=== PATIENT | male | born 1940 | race Two or more races ===

== ENCOUNTER 2020-03-06 13:23 | Inpatient (IN) | payer MEDICARE ==
[2020-03-06] VITALS (7 sets, daily range): BP systolic 187–205; BP diastolic 79–91; BMI 23.4
[~2020-03-06] VITALS: Ht 162.6 cm; Wt 61.5 kg
--- NOTE | ~2020-03-06 | EC ---
PATIENT:ANN MARIE DUTTON JR DATE OF SERVICE: 03/06/20 SEX: M MEDICAL RECORD: [id number] DATE OF : 44 LOCATION:D.M2 D.212 AGE OF PATIENT: 79 ADMISSION DATE: 03/06/20 REFERRING PHYSICIAN: INTERPRETING PHYSICIAN: JACKELNY GUTIÉRREZ MD ECHOCARDIOGRAM REPORT ECHO CHARGES 4 ECHO COMPLETE Date: 03/07/20 CLINICAL DIAGNOSIS: LVH ECHOCARDIOGRAPHIC MEASUREMENTS (adult normal given) AC root (d.<3.7cm) 3.6 cm LV Septum d (<1.2 cm> 1.3 cm Valve Excursion 1.2 cm LV Septum (systole) 1.7 cm Left Atria (s.<4.0cm> 3.2 cm LVPW d(<1.2cm) 1.3 cm RV (d.<2.3cm) 2.3 cm LVPW (sytole) 1.9 cm LV diastole(<5.6CM) 4.9 cm MV E-F(>70mm/sec) cm LV systole 2.7 cm LVOT Diameter 1.8 cm MV exc.(>10mm) cm Est.ejection fraction (50-75%) % DOPPLER: LVIT cm/sec A 63.0 cm/sec E 111.0 cm/sec LA cm/sec RVSP 23.0 mmHg LVOT 89.0 cm/sec AOP1/2T m/s Asc. Ao 125 cm/sec RVOT 106 cm/sec RA cm/sec PA 146 cm/sec AV Gradient Peak 6.2 mmHg AV Mean 3.4 mmHg AV Area 2.0 cm MV Gradient Peak 6.5 mmHg MV Mean 2.6 mmHg MV Area cm COMMENTS: Certified Medical Assistant: Chanell LAUOE Chief Nursing Executive: Rena Gutiérrez TAPE# PACS Pericardial Effusion N DATE OF SERVICE: 03/08/2020 PROCEDURE: Transthoracic echocardiogram. Left ventricle is normal size, normal function, ejection fraction 50% to 55% with concentric left ventricular hypertrophy. Left atrium is normal size and function. Aortic valve is normal. ECHOCARDIOGRAM REPORT [id number] ANN MARIE DUTTON JR Mitral valve has trace mitral regurgitation. Tricuspid valve is normal structure and function. Right ventricular systolic pressure is 23 mmHg. Pericardium is normal. Right ventricle is normal size, shape, and function. Right atrium is normal size, shape, and function. Pulmonic valve is normal. TRANSINT:[id number] Voice Confirmation ID: [id number] DOCUMENT ID: [id number] JACKELYN GUTIÉRREZ MD CC: [id number] DICTATION DATE: 03/08/201839 TABLE TENDER: 03/09/20 0202 ADM IN [facility] [address] [id number]
--- NOTE | 2020-03-06 13:28 | NUR ---
PT GIVES VERBAL CONSENT TO SPEAK TO DAUGHTER THERESA OVER THE PHONE ABOUT HIS MEDICAL CONDITION. PHONE NUMBER [phone].
[2020-03-06 14:59] LABS: BASOPHILS 0 % (0-2); EOSINOPHILS 0 % (0-7); HEMATOCRIT 48.3 % (42.0-54.0); HEMOGLOBIN 15.6 g/dL (13.5-17.5); IMMATURE GRANULOCYTES 0.1 % (0-5); LYMPHOCYTES 5.8 % (15-50); MCH 28.6 pg (26.0-34.0); MCHC 32.3 g/dL (31.0-37.0); MCV 88.5 fL (80.0-100.0); MEAN PLATELET VOLUME 9.7 fL (7.4-10.4); MONOCYTES 0.3 % (2-11); NEUTROPHILS 93.8 % (40-80); PLATELET COUNT 205 10x3/uL (130-400); RBC 5.46 10x6/uL (4.20-6.10); RDW 13.8 % (11.5-14.5); WBC 8.9 10x3/uL (4.8-10.8)
[2020-03-06 15:18] LABS: CALC OSMOLALITY 285 mosm/kg (275-300); CALCIUM 9.2 mg/dL (8.5-10.1); CARBON DIOXIDE 26.1 mmol/L (21.0-32.0); CHLORIDE - SERUM 105 mmol/L (98-107); CREATININE - SERUM 1.6 mg/dL (0.6-1.3); GLUCOSE 157 mg/dL (74-106); POTASSIUM - SERUM 4.6 mmol/L (3.5-5.1); SODIUM 141 mmol/L (136-145); UREA NITROGEN 19 mg/dL (7-18); eGFR NON AFRICAN AMERICAN 45 mL/min (90-120)
[2020-03-06 15:40] LABS: ALBUMIN 3.6 g/dL (3.4-5.0); ALKALINE PHOSPHATASE 166 U/L (30-120); ALT (SGPT) 18 U/L (10-68); BILIRUBIN - TOTAL 0.31 mg/dL (0.2-1.3); CKMB 9.1 U/L (0.0-3.6); CREATINE KINASE 100 UL (21-232); INR 1.01 (0.85-1.17); PROTEIN - SERUM 7.4 g/dL (6.4-8.2); PROTIME 13.3 SECONDS (11.6-15.0)
[2020-03-06 16:04] LABS: TROPONIN-I 1.802 ng/mL (0.000-0.060)
--- NOTE | 2020-03-06 17:00 | NUR ---
REPORT OF CONDITION GIVEN TO THERESA PAREDES R/T ADMISSION AND ROOM NUMBER.
--- NOTE | 2020-03-06 17:15 | NUR ---
REPORT OF ADMISSION AND ROOM NUMBER GIVEN TO CAREGIVER TROY TATE, GRANDDAUGHTER.
--- NOTE | 2020-03-06 17:34 | NUR ---
LOVENOX GIVEN AT [facility] ER. DOSE HELD AT 1734 PER ERP ORDERS.
--- NOTE | 2020-03-06 17:58 | NUR ---
PT TO ROOM FROM ER ON CART. ASSIST TO BED. OXYGEN IN USE. DR GUTIÉRREZ NOTIFIED OF CONSULT. TELEMETRY APPLIED.
--- NOTE | 2020-03-06 18:35 | NUR ---
[facility] WITH LIST OF PT'S MEDS FAMILY SENT. CALLED WITH FAX NUMBER TO SEND TO FLOOR. WILL UPDATE MED LIST AT THAT TIME.
--- NOTE | 2020-03-06 20:00 | NUR ---
INITIAL ROUNDS AND ASSESSMENT COMPLETED. PT RESTING IN BED. GARBLED SPEECH. ASKING FOR FOOD TO EAT. PROVIDED WITH SANDWICH TRAY/DRINK. PT'S GRAND DAUGHTER ARRIVED AND SPENT TIME WITH HIM. CPOC.
[2020-03-07 00:30] VITALS: BP 140/63
[2020-03-07 04:30] VITALS: BP 157/56
[2020-03-07 05:01] LABS: BASOPHILS 0 % (0-2); EOSINOPHILS 0 % (0-7); HEMATOCRIT 42.3 % (42.0-54.0); HEMOGLOBIN 13.6 g/dL (13.5-17.5); IMMATURE GRANULOCYTES 0.3 % (0-5); LYMPHOCYTES 5.3 % (15-50); MCH 28.3 pg (26.0-34.0); MCHC 32.2 g/dL (31.0-37.0); MCV 87.9 fL (80.0-100.0); MONOCYTES 2.2 % (2-11); NEUTROPHILS 92.2 % (40-80); PLATELET COUNT 193 10x3/uL (130-400); RBC 4.81 10x6/uL (4.20-6.10); RDW 13.7 % (11.5-14.5)
[2020-03-07 05:02] LABS: WBC 17.1 10x3/uL (4.8-10.8)
[2020-03-07 05:08] LABS: INR 1.18 (0.85-1.17); PROTIME 14.9 SECONDS (11.6-15.0)
[2020-03-07 05:51] LABS: ANION GAP 14.7 mmol/L (8-16); CALCIUM 8.8 mg/dL (8.5-10.1); CARBON DIOXIDE 22.8 mmol/L (21.0-32.0); CREATININE - SERUM 1.8 mg/dL (0.6-1.3); POTASSIUM - SERUM 4.5 mmol/L (3.5-5.1)
[2020-03-07 05:53] LABS: TROPONIN-I 1.075 ng/mL (0.000-0.060)
[2020-03-07] MEDS ORDERED: BAYER CHEWABLE81 MG PO (07:26)
[2020-03-07] MEDS ORDERED: COREG 3.1253.125 MG PO (07:27)
[2020-03-07] MEDS ORDERED: PLAVIX75 MG PO (07:27)
[2020-03-07] MEDS ORDERED: KLOR-CON M2020 MEQ PO (07:28)
[2020-03-07] MEDS ORDERED: LISINOPRIL-HCT1 EAC7 PO (07:28)
[2020-03-07] MEDS ORDERED: NITROSTAT0.4 MG SL (07:29)
[2020-03-07] MEDS ORDERED: LOVASTATIN10 MG PO (07:29)
[2020-03-07] MEDS ORDERED: TAPAZOLE 5 MG TA5 MG PO (07:32)
--- NOTE | 2020-03-07 07:35 | NUR ---
PT AWAKE AND ORIENTED, LYING IN BED RECIEVING BREATHING TX. NO COMPLAINTS OR CONCERNS STATED AT HIS ITME. NO FAMILY AT BEDSIDE. ALL QUESTIONS ANSWERED TO THE BEST OF MY ABILITY. CL IN REACH, SRX2.
[2020-03-07 09:50] VITALS: BMI 23.3
[2020-03-07 10:14] VITALS: BP 160/72
[2020-03-07 12:32] VITALS: Ht 162.6 cm; Wt 61.5 kg
--- NOTE | 2020-03-07 13:43 | NUR ---
I have reviewed this patient and I concur with the Shift Assessment completed by the Licensed Practical Nurse today this shift.
--- NOTE | 2020-03-07 17:59 | NUR ---
PT DAUGHTER HAS BEEN IN AND OUT OF ROOM MULTIPLE TIMES TODAY, SWAPPING ON AND OFF WITH THE SON (THEY HAVE SPECIAL PERMISSION PER ADMINISTRATION AND CONFIRMED BY FISHING LINE WINDING MACHINE OPERATOR SHELBIE). DAUGHTER C/O OF OUR COFFEE NOT BEING FRESH DESPITE THE FACT [employer] HAD JUST MADE A POT. SHE COMPLAINED ABOUT THAT THREE TIMES AND ONCE TO THE DR. UNSURE HOW TO BETTER MEET THIS NEED COFFEE WAS A FRESHLY MADE FULL POT. PT HAS BEEN ALERT AND ORIENTED, UP WITHOUT ASSIST. TOOK ALL MEDIACTIONS WITHOUT DIFFICULTY. ALL QUESTIONS ANSWERED TO THE BEST OF MY ABILITY, PT WAS SEEN BY HOSPITALIST AND ALL CONSULTING DRS. NO COMPLAITNS OR CONCERNS AT THIST RAMON. CL IN REACH, SRX2, DAUGHTER AT BEDSIDE.
--- NOTE | 2020-03-07 19:51 | NUR ---
INITIAL ROUNDS AND ASSESSMENT COMPLETED. PT RESTING IN BED. NO DISTRESS. CPOC.
--- NOTE | 2020-03-07 20:29 | NUR ---
US CALLED TO GET PT READY FOR AN ULTRASOUND DOPPLER OF LOWER EXTREMITIES. WENT TO GET PATIENT READY AND HE WAS VERY ANGRY. MUTTERING AND BECOMING OVERLY EXCITED ABOUT THE UNNECCISITY OF THIS PROCEDURE. DECISION MADE PER PATIENT TO NOT GET DOPPLER TONIGHT AND HE WILL VENT TO MD TOMORROW ABOUT WHY HE THINKS PROCEDURE IS NOT WHAT HE NEEDS.
--- NOTE | 2020-03-07 21:02 | NUR ---
BEDTIME MEDS GIVEN. NEW IV ABT UP AND INFUSING. PT RESTING, WATCHING TV.
[2020-03-08 00:30] VITALS: BP 152/59
--- NOTE | 2020-03-08 02:47 | NUR ---
PT RESTING WITH EYES CLOSED. RESP EVEN AND REGULAR. SR UP X2, CALL LIGHT WITHIN REACH. IVF INFUSING. CPOC.
[2020-03-08 04:30] VITALS: BP 152/61
[2020-03-08 05:15] LABS: BASOPHILS 0 % (0-2); EOSINOPHILS 0 % (0-7); HEMOGLOBIN 11.9 g/dL (13.5-17.5); IMMATURE GRANULOCYTES 0.3 % (0-5); LYMPHOCYTES 3.9 % (15-50); MCH 28.3 pg (26.0-34.0); MCHC 32.2 g/dL (31.0-37.0); MCV 88.1 fL (80.0-100.0); MEAN PLATELET VOLUME 9.5 fL (7.4-10.4); MONOCYTES 3.3 % (2-11); NEUTROPHILS 92.5 % (40-80); PLATELET COUNT 171 10x3/uL (130-400); RDW 13.9 % (11.5-14.5); WBC 19.6 10x3/uL (4.8-10.8)
[2020-03-08 05:45] LABS: ERYTHROCYTE SEDIMENTATION RATE 58 mm/hr (0-20)
[2020-03-08 05:47] LABS: ALBUMIN 2.7 g/dL (3.4-5.0); ANION GAP 7.9 mmol/L (8-16); BILIRUBIN - TOTAL 0.23 mg/dL (0.2-1.3); CALCIUM 7.7 mg/dL (8.5-10.1); CARBON DIOXIDE 26.9 mmol/L (21.0-32.0); CREATININE - SERUM 1.8 mg/dL (0.6-1.3); POTASSIUM - SERUM 4.8 mmol/L (3.5-5.1)
--- NOTE | 2020-03-08 08:00 | NUR ---
PT TO CT.
[2020-03-08 08:22] VITALS: BP 147/71
--- NOTE | 2020-03-08 08:29 | NUR ---
SPOKE WITH PT'S OLDER DAUGHTER THERESA AND UPDATED HER ON PLAN OF CARE AND INFORMED HER THAT PT REFUSED VENOUS DROPPLER OF LE LAST NIGHT. THERESA STATED THAT IF PT REFUSES ANY MORE TEST TO CONTACT HER.
[2020-03-08 09:05] LABS: SPECIFIC GRAVITY 1.015 (1.005-1.020)
[2020-03-08 09:06] LABS: BILIRUBIN NEGATIVE (NEGATIVE); GLUCOSE 100 mg/dL (NEGATIVE); KETONE NEGATIVE (NEGATIVE); NITRITE NEGATIVE (NEGATIVE); UROBILINOGEN NORMAL (NORMAL)
[2020-03-08 09:13] LABS: EPITHELIAL CELLS NSEEN /hpf (0-5); RED CELLS - URINE NONE SEEN /hpf (0-5); WHITE CELLS - URINE 0-5 /hpf (NEGATIVE)
[2020-03-08 09:14] LABS: BACTERIA FEW /hpf (NEGATIVE)
[2020-03-08 10:59] LABS: PRO/CRE RATIO URINE 0.5 mg/g; PROTEIN - URINE 64.3 mg/dL (0.0-11.9)
--- NOTE | 2020-03-08 15:10 | NUR ---
OFFERED PT A SHOWER AND PT STATED THAT HE WOULD TAKE ONE LATER TODAY.
[2020-03-08 15:45] VITALS: BP 150/59
--- NOTE | 2020-03-08 20:00 | NUR ---
INITIAL ROUNDS AND ASSESSMENT COMPLETE. PT RESTING IN BED AND EATING A BAG OF CHIPS. IVF INFUSING. IV SITE HAS INFILTRATED. RESITED NEW IV TO LFA. PT IS ALERT/ORIENTED AND ABLE TO PERFORM ADLS INDEPENDENTLY. CALL LIGHT IN REACH. CPOC.
[2020-03-08 20:30] VITALS: BP 162/66
[2020-03-09] VITALS (7 sets, daily range): BP systolic 149–177; BP diastolic 56–89
--- NOTE | 2020-03-09 02:50 | NUR ---
NO DISTRESS. RESTING IN BED, WATCHING TV. CPOC. IVF INFUSING.
[2020-03-09 05:26] LABS: BASOPHILS 0 % (0-2); EOSINOPHILS 0 % (0-7); HEMATOCRIT 39.3 % (42.0-54.0); HEMOGLOBIN 12.5 g/dL (13.5-17.5); IMMATURE GRANULOCYTES 0.3 % (0-5); LYMPHOCYTES 3.7 % (15-50); MCHC 31.8 g/dL (31.0-37.0); MCV 87.9 fL (80.0-100.0); MEAN PLATELET VOLUME 10.2 fL (7.4-10.4); MONOCYTES 2.1 % (2-11); NEUTROPHILS 93.9 % (40-80); PLATELET COUNT 188 10x3/uL (130-400); RBC 4.47 10x6/uL (4.20-6.10); RDW 13.9 % (11.5-14.5); WBC 15.1 10x3/uL (4.8-10.8)
[2020-03-09 06:01] LABS: ALBUMIN 2.8 g/dL (3.4-5.0); ANION GAP 9.3 mmol/L (8-16); BILIRUBIN - TOTAL 0.31 mg/dL (0.2-1.3); CALCIUM 7.7 mg/dL (8.5-10.1); CARBON DIOXIDE 27.3 mmol/L (21.0-32.0); CREATININE - SERUM 1.7 mg/dL (0.6-1.3); POTASSIUM - SERUM 4.6 mmol/L (3.5-5.1); PROTEIN - SERUM 6.3 g/dL (6.4-8.2)
--- NOTE | 2020-03-09 17:08 | NUR ---
PER DR. TANNER, PT CAN DISCHARGE TOMORROW.
--- NOTE | 2020-03-09 19:45 | NUR ---
REPORT RECEIVED AND ROUNDING COMPLETE. PATIENT LAYING IN BED IN HIGH FOWLERS, A&O X4. PATIENT IS WEARING NASAL CANNULA WIT O2 AT 2L, NO DISTRESS NOTED AT THIS TIME. PATIENT HAS A LEFT FOREARM PIV THAT IS RUNNING FLUIDS AT THIS TIME. NO DISTRESS NOTED, REPORTS NO NEEDS AT THIS TIME. CALL LIGHT WITHIN REACH AND BED IN LOWEST LOCKED POSITION.
--- NOTE | 2020-03-09 23:38 | NUR ---
FRANKO FROM THE LAB CALLED AND STATED THAT HE WAS CANCELING LABS THAT WERE NOT RECIEVED TODAY, TALKED WITH ALBERT MIRAMONTES AND HE ORDERED I RESCHEDULE THOSE LABS WITH 0500 LABS. WILL FOLLOW ORDER.
[2020-03-10 04:27] VITALS: BP 181/76
[2020-03-10 06:09] LABS: IMMUNOGLOBULIN A 299 mg/dL (61-437)
[2020-03-10 06:18] LABS: ALBUMIN 2.6 g/dL (3.4-5.0); ANION GAP 10.7 mmol/L (8-16); BILIRUBIN - TOTAL 0.3 mg/dL (0.2-1.3); CALCIUM 7.7 mg/dL (8.5-10.1); CREATININE - SERUM 1.8 mg/dL (0.6-1.3); POTASSIUM - SERUM 4.7 mmol/L (3.5-5.1); PROTEIN - SERUM 5.8 g/dL (6.4-8.2)
[2020-03-10 06:23] LABS: BASOPHILS 0 % (0-2); EOSINOPHILS 0 % (0-7); HEMATOCRIT 39.5 % (42.0-54.0); HEMOGLOBIN 12.7 g/dL (13.5-17.5); IMMATURE GRANULOCYTES 0.2 % (0-5); LYMPHOCYTES 4.4 % (15-50); MCH 28.1 pg (26.0-34.0); MCHC 32.2 g/dL (31.0-37.0); MCV 87.4 fL (80.0-100.0); MEAN PLATELET VOLUME 10.6 fL (7.4-10.4); MONOCYTES 4.3 % (2-11); NEUTROPHILS 91.1 % (40-80); PLATELET COUNT 187 10x3/uL (130-400); RBC 4.52 10x6/uL (4.20-6.10); RDW 13.6 % (11.5-14.5); WBC 13.4 10x3/uL (4.8-10.8)
[2020-03-10 08:47] VITALS: BP 184/81
[2020-03-10 09:25] VITALS: BP 155/67
[2020-03-10 12:09] LABS: ANA REFLEX - ANTICHROMATIN ABS <0.2 AI (0.0-0.9); ANA REFLEX - CENTROMERE B ABS <0.2 AI (0.0-0.9); ANA REFLEX - DBL STRANDED DNA <1 IU/mL (0-9); ANA REFLEX - DIRECT Positive (Negative); ANA REFLEX - JO-1 AB <0.2 AI (0.0-0.9); ANA REFLEX - RNP ANTIBODIES 1.1 AI (0.0-0.9); ANA REFLEX - SCL-70 <0.2 AI (0.0-0.9); ANA REFLEX - SJOGRENS AB SSA 3.5 AI (0.0-0.9); ANA REFLEX - SJOGRENS AB SSB 1.2 AI (0.0-0.9); ANA REFLEX - SMITH AB 0.3 AI (0.0-0.9)
[2020-03-10 13:11] VITALS: BP 163/65
--- NOTE | 2020-03-10 14:27 | NUR ---
Nutrition Follow-up: Good/fair PO intake. Diet: Cardiac PO intake: 50-100% Wt: 135.2# (03/10) Labs noted: Glu 151, Ca 7.7, Alb 2.6 Meds noted: Januvia, NS @ 50, Solumedrol, Protonix, electrolyte protocol -MD may consider cardiac carb consistent diet. -Encourage PO intake and honor food preferences within diet restrictions. -Monitor wt. -RD following.
[2020-03-10] MEDS ORDERED: IPRAT-ALBUT 0.5-3 ML INH (15:45)
[2020-03-10] MEDS ORDERED: MUCINEX DM ER1 EAC1 PO (15:48)
[2020-03-10] MEDS ORDERED: JANUVIA50 MG PO (15:48)
[2020-03-10] MEDS ORDERED: DALIRESP250 MCG PO (15:48)
[2020-03-10] MEDS ORDERED: TESSALON PERLE100 MG PO (15:48)
[2020-03-10] MEDS ORDERED: KEFLEX500 MG PO (15:49)
[2020-03-10] MEDS ORDERED: VIBRAMYCIN 100100 MG PO (15:49)
[2020-03-10] MEDS ORDERED: PREDNISONE10 MG PO (15:50)
[2020-03-10] MEDS ORDERED: ALBUTEROL SULF8.5 GM INH (15:51)
[2020-03-10 17:10] VITALS: BP 157/58
--- NOTE | 2020-03-10 17:13 | MORECARE ---
CASE MANAGEMENT DISCHARGE SUMMARY PATIENT: ANN MARIE DUTTON JR UNIT: [id number] ADM DATE: 03/06/20 AGE: 79 : 42 SEX: M ROOM/BED: D.7397 AUTHOR: FORD LOPEZ PHYSICIAN: REFERRING PHYSICIAN: IVAN HOPKINS MD DATE OF SERVICE: 03/10/20 Discharge Plan Patient Name: ANN MARIE DUTTON Facility: [facility]:[place] : 1940 Planned Disposition: Home Anticipated Discharge Date: Discharge Date: Expected LOS: Initial Reviewer: [email or web address] Initial Review Date: 03/06/2020 Generated: 03/10/20 6:12 pm Comments DCP- Discharge Planning Updated by [id number]: Katya Ayers on 03/10/20 3:[address] Patient Name: ANN MARIE DUTTON Admission Status: ER Accout number: [id number] Admission Date: 03-06-2020 : 1940 Admission Diagnosis:SHORTNESS OF BREATH Attending: IVAN BARROS Current LOS: 4 Anticipated DC Date: Planned Disposition: Primary Insurance: MEDICARE A & B Discharge Planning Comments: CM met with patient to complete initial dc planning assessment. CM educated patient on the CM role and verbal consent given by patient to complete assessment. CM verified patient's address, phone number, and emergency contact phone numbers. Pt PCP is [facility] in [place], Patient states he is unable to recall the name. Patient lives at home with his granddaughter (Eitan [phone]). At discharge patient plans to return home and feels this is a safe discharge. CM discussed availability of home health, rehab services, and medical equipment. Patient states he has home 02 and is on 2 liters, with nebulizers and will return to using their services. BILL signed for [facility]. Declination signed for HH or Rehab. Patient denied known discharge needs at this time. Transportation provider at discharge will be. DC IMM delivered, explained, signed by the patient, and placed in his chart. Signed form also left with patient. CM will continue to follow and will assist as needed with dc plans/needs. Affirmative Action Specialist: Katya Ayers MSn,RN,CM DCPIA - Discharge Planning Initial Assessment Updated by [id number]: Katya Ayers on 03/10/20 4:30 pm * Is the patient Alert and Oriented? Yes * How many steps to enter\exit or inside your home? 0/0 * PCP [facility] [place] * Pharmacy UNKNOWN * Preadmission Environment Home with Family * ADLs Independent * Equipment Nebulizer Oxygen * List name and contact numbers for known caregivers / representatives who currently or will assist patient after discharge: GRAND DAUGHTER [phone] * Verbal permission to speak to the caregivers and representatives has been obtained from the patient. Yes * Community resources currently utilized Other * Please name any agencies selected above. [facility] * Additional services required to return to the preadmission environment? Yes * Can the patient safely return to the preadmission environment? Yes * Has this patient been hospitalized within the prior 30 days at any hospital? No Coverage Notice Reviewer: [id number] Alondra Ayesr Notice Issued Date-Time: 03/10/2020 12:00 Notice Type: Patient Choice Letter Notice Delivered To: Patient Relationship to Patient: Call Center Analyst Name: Delivery Method: HAND - Hand Delivered Etresa Days: Prior Verbal Notification: Recipient Understood Notice: Yes Recipient Signature: Yes Med Rec Note Co-signed by Attending: Coverage Notice Comment: bill signed to resume [facility]. declination for hh or rehab Reviewer: [email or web address] Alondra Ayers Notice Issued Date-Time: 03/10/2020 12:00 Notice Type: IM Discharge Notice Notice Delivered To: Patient Relationship to Patient: Call Center Analyst Name: Delivery Method: HAND - Hand Delivered Teresa Days: Prior Verbal Notification: Recipient Understood Notice: Yes Recipient Signature: Yes Med Rec Note Co-signed by Attending: Coverage Notice Comment: DC IMM delivered, explained, signed by the patient, and placed in his chart. Signed form also left with patient. Patient Name: ANN MARIE DUTTON Page [phone] at 1713 All edits/amendments must be made on the electronic document DICTATION DATE: 03/10/201712 SHOWROOM SALESPERSON: ANTONIO 03/10/201712 RPT#: [id number] DC DATE: STATUS: ADM IN [facility] [address] [place] [address] END OF REPORT
--- NOTE | 2020-03-10 17:56 | NUR ---
PT DISCHARGED HOME VIA WHEELCHAIR WITH FAMILY. PIV REMOVED WITH CATHETER TIP FULLY INTACT. TELEMETRY REMOVED AND RETURNED. PT SIGNED DISCHARGE INSTRUCTIONS AND REMOVED ALL VALUABLES FROM THE ROOM.
--- NOTE | 2020-03-11 09:22 | MORECARE ---
CASE MANAGEMENT DISCHARGE SUMMARY PATIENT: ANN MARIE DUTTON JR UNIT: [id number] ADM DATE: 03/06/20 AGE: 79 : 42 SEX: M ROOM/BED: D.1225 AUTHOR: FORD LOPEZ PHYSICIAN: REFERRING PHYSICIAN: IVAN HOPKINS MD DATE OF SERVICE: 03/11/20 Discharge Plan Patient Name: ANN MARIE DUTTON Facility: [facility]:[place] : 1940 Planned Disposition: Home Anticipated Discharge Date: Discharge Date: 03/10/2020 Expected LOS: Initial Reviewer: [email or web address] Initial Review Date: 03/06/2020 Generated: 03/11/20 10:21 am Comments DCP- Discharge Planning Updated by [id number]: Katya Ayers on 03/10/20 3:[address] Patient Name: ANN MARIE DUTTON Admission Status: ER Accout number: [id number] Admission Date: 03-06-2020 : 1940 Admission Diagnosis:SHORTNESS OF BREATH Attending: IVAN BARROS Current LOS: 4 Anticipated DC Date: Planned Disposition: Primary Insurance: MEDICARE A & B Discharge Planning Comments: CM met with patient to complete initial dc planning assessment. CM educated patient on the CM role and verbal consent given by patient to complete assessment. CM verified patient's address, phone number, and emergency contact phone numbers. Pt PCP is [facility] in [place], Patient states he is unable to recall the name. Patient lives at home with his granddaughter (Eitan [phone]). At discharge patient plans to return home and feels this is a safe discharge. CM discussed availability of home health, rehab services, and medical equipment. Patient states he has home 02 and is on 2 liters, with nebulizers and will return to using their services. BILL signed for [facility]. Declination signed for HH or Rehab. Patient denied known discharge needs at this time. Transportation provider at discharge will be. DC IMM delivered, explained, signed by the patient, and placed in his chart. Signed form also left with patient. CM will continue to follow and will assist as needed with dc plans/needs. Prn Occupational Therapist: Katya Ayers MSn,RN,CM DCPIA - Discharge Planning Initial Assessment Updated by [id number]: Katya Ayers on 03/10/20 4:30 pm * Is the patient Alert and Oriented? Yes * How many steps to enter\exit or inside your home? 0/0 * PCP [facility] IN [place] * Pharmacy UNKNOWN * Preadmission Environment Home with Family * ADLs Independent * Equipment Nebulizer Oxygen * List name and contact numbers for known caregivers / representatives who currently or will assist patient after discharge: GRAND DAUGHTER [phone] * Verbal permission to speak to the caregivers and representatives has been obtained from the patient. Yes * Community resources currently utilized Other * Please name any agencies selected above. [facility] * Additional services required to return to the preadmission environment? Yes * Can the patient safely return to the preadmission environment? Yes * Has this patient been hospitalized within the prior 30 days at any hospital? No Coverage Notice Reviewer: [email or web address] Alondra Ayers Notice Issued Date-Time: 03/10/2020 12:00 Notice Type: Patient Choice Letter Notice Delivered To: Patient Relationship to Patient: Manager Chinese Name: Delivery Method: HAND - Hand Delivered Teresa Days: Prior Verbal Notification: Recipient Understood Notice: Yes Recipient Signature: Yes Med Rec Note Co-signed by Attending: Coverage Notice Comment: bill signed to resume [facility]. declination for hh or rehab Reviewer: [email or web address] Alondar Ayers Notice Issued Date-Time: 03/10/2020 12:00 Notice Type: IM Discharge Notice Notice Delivered To: Patient Relationship to Patient: Manager Chinese Name: Delivery Method: HAND - Hand Delivered Teresa Days: Prior Verbal Notification: Recipient Understood Notice: Yes Recipient Signature: Yes Med Rec Note Co-signed by Attending: Coverage Notice Comment: DC IMM delivered, explained, signed by the patient, and placed in his chart. Signed form also left with patient. Last DP export: 03/10/20 4:13 pm Patient Name: ANN MARIE DUTTON Page [phone] at 0922 All edits/amendments must be made on the electronic document DICTATION DATE: 03/11/20920 QUALITY ENGINEER MEDICAL DEVICE: ANTONIO 03/11/20920 RPT#: [id number] DC DATE:03/10/20 STATUS: DIS IN [facility] [address] [place] [address] END OF REPORT
--- NOTE | 2020-03-11 15:06 | NUR ---
LEIDA DUTTON, CALLS. ASKS RE PT'S MEDICATIONS, IF THERE ARE CHEAPER ALTERNATIVE MEDICATIONS. REC TAKE CURRENT MEDICATION LIST TO PT'S PCP AND DISCUSS WITH HIM RE ALTERNATIVES.
== END 2020-03-10 17:56 | disposition home or self-care (01) | DRG 280 ==
LOC: EDBD 13:23 → D.ER 13:23 → D.M2 16:17
PROVIDERS: Family Medicine; Internal Medicine Nephrology; Internal Medicine Pulmonary Disease; ADMIT Family Medicine; ATTEND Family Medicine
DX: I21.4 Non-ST elevation (NSTEMI) myocardial infarction (principal); J96.01 Acute respiratory failure with hypoxia; J96.21 Acute and chronic respiratory failure with hypoxia; N17.9 Acute kidney failure, unspecified; I25.10 Atherosclerotic heart disease of native coronary artery without angina pectoris; J43.9 Emphysema, unspecified; N28.1 Cyst of kidney, acquired; I10 Essential (primary) hypertension; D64.9 Anemia, unspecified; E11.9 Type 2 diabetes mellitus without complications; Z86.73 Personal history of transient ischemic attack (TIA), and cerebral infarction without residual deficits